=== PATIENT | female | born 1945 | race Caucasian/White ===

== ENCOUNTER 2018-03-25 09:45 | Emergency (ER) | payer MEDICARE, OTHER ==
[2018-03-25] MEDS: ACETAMINOPHEN 500 MG TAB PO (11:53)
== END 2018-03-25 12:35 | disposition home or self-care (01) ==
LOC: FTE 09:45
DX: M79.662 Pain in left lower leg (principal); I10 Essential (primary) hypertension
CPT/HCPCS: 93971; 99284-25